=== PATIENT | female | born 1930 | race Caucasian/White ===

== ENCOUNTER 2018-05-15 03:12 | Inpatient (IN) | payer MEDICARE, BC ==
[~2018-05-15] VITALS: Ht 172.7 cm; Wt 79.9 kg
--- NOTE | 2018-05-15 05:20 | NUR ---
RN MS ADMISSION NOTES RECEIVED PATIENT DIRECT ADMIT FROM [facility]. DX. PANCREATITIS. PATIENT IS ALERT AND ORIENTED X1-2, CONFUSED. VERBALLY RESPONSIVE, ABLE TO MAKE NEEDS KNOWN. BREATHING EVEN AND UNLABORED. NO SOB NOTED. TOLERATING ROOM AIR. NO COMPLAINTS OF PAIN OR DISCOMFORT. NO FACIAL GRIMACING. IV ON LEFT HAND G#20 INTACT AND PATENT. SKIN DRY AND WARM TO TOUCH. AFEBRILE. SKIN ASSESSMENT RENDERED WITH PICTURES TAKEN AND PLACED IN CHART. PATIENT DID NOT HAVE BELONGINGS WITH HER WHEN ADMITTED. ORIENTED TO THE USE OF UNIT AMENITIES. SAFETY MEASURES IN PLACE. CALL LIGHT WITHIN REACH. WILL CONTINUE TO MONITOR.
[2018-05-15 05:30] VITALS: BP 165/64
[2018-05-15] MEDS ORDERED: HYDROCODONE/APAP 5/325MG 1 EACH TABLET PO PRN (06:00)
[2018-05-15] MEDS ORDERED: DEXTROSE 50%-WATER 50 ML DISP.SYRIN IV PRN (06:00)
[2018-05-15] MEDS ORDERED: Z GUARD REMEDY 2 OZ OINT TP PRN (06:00)
[2018-05-15] MEDS ORDERED: ACETAMINOPHEN 325 MG TABLET PO PRN (06:00)
[2018-05-15] MEDS ORDERED: ZOLPIDEM TARTRATE 5 MG TABLET PO PRN (06:00)
[2018-05-15] MEDS ORDERED: MAGNESIUM HYDROXIDE 30 ML UDC PO PRN (06:00)
[2018-05-15] MEDS ORDERED: MAG HYDROX/AL HYDROX/SIMETH 30 ML UDC PO PRN (06:00)
[2018-05-15] MEDS ORDERED: INSULIN REGULAR, HUMAN 100 UNIT/ML 3 ML VIAL SQ PRN (06:00)
[2018-05-15] MEDS ORDERED: ONDANSETRON HCL/PF 4 MG/2 ML VIAL IVP PRN (06:00)
[2018-05-15] MEDS: BLOOD SUGAR DIAGNOSTIC 1 EACH STRIP IN SCH ×4 (06:53→21:52)
--- NOTE | 2018-05-15 06:53 | NUR ---
RN MS NOTES BS 108 NO COVERAGE NEEDED
[2018-05-15] MEDS: IV D5 LR 1,000 ML IV PRN ×2 (06:57→18:50)
[2018-05-15 07:09] LABS: BASOPHILS # (AUTO) 0.1 /CMM (0.0-0.2); BASOPHILS % (AUTO) 1.2 % (0.0-2.0); EOSINOPHILS % (AUTO) 0.8 % (0.0-6.0); HEMATOCRIT 36 % (33-45); HEMOGLOBIN 12.2 g/dL (11.5-14.8); LYMPHOCYTES # (AUTO) 1.1 /CMM (0.8-4.8); MEAN CORPUSCULAR HGB CONC 34 g/dl (31.0-36.0); MEAN CORPUSCULAR VOLUME 88 fL (82-100); MONOCYTES # (AUTO) 0.6 /CMM (0.1-1.30); MONOCYTES % (AUTO) 8.6 % (2.0-12.0); NEUTROPHILS # (AUTO) 5.4 /CMM (1.8-8.9); NEUTROPHILS % (AUTO) 74.4 % (43.0-81.0); PLATELET COUNT (AUTO) 203 /CMM (150-450); RED BLOOD CELL COUNT(AUTO) 4.14 MIL/uL (4.0-5.2); WHITE BLOOD COUNT (AUTO) 7.3 K/uL (4.3-11.0)
--- NOTE | 2018-05-15 07:10 | NUR ---
MS/RN OPENING NOTE THE PATIENT ALERT AND ORIENTED X1 AND HEAD ON HEARING. DENIES PAIN. RESPIRATION REGULAR AND UNLABORED. PATIENT IS IN ROOM AIR AND DENIES SOB. THE PATIENT IN NO APPARENT DISTRESS. ABDOMEN SOFT AND NON-DISTENDED. LFA G 20 PATENT AND SALINE LOCKED. BED LOW AND LOCKED. SIDE RAILS UP X3. BED ALARM ON. CALL LIGHT WITHIN REACH. WILL CONTINUE TO MONITOR.
--- NOTE | 2018-05-15 07:20 | NUR ---
MS/RN NOTE LFA G 20 PATENT. TURNED ON D5 LR AT 125ML/HR AND IT STARTED TO INFUSE WITH NO S/S INFILTRATION. WILL CONTINUE TO MONITOR.
[2018-05-15 07:41] LABS: ALANINE AMINOTRANSFERASE 15 U/L (12-78); ALBUMIN 3.3 g/dL (3.4-5.0); ALKALINE PHOSPHATASE 49 U/L (46-116); ASPARTATE AMINOTRANSFERASE 14 U/L (15-37); BILIRUBIN,TOTAL 0.7 mg/dL (0.2-1.0); CALCIUM, SERUM 9.6 mg/dL (8.5-10.1); CARBON DIOXIDE 28 mmol/L (21-32); CHLORIDE 104 mmol/L (98-107); CHOLESTEROL 210 mg/dL (<200); CREATININE 1.9 mg/dL (0.6-1.3); GLUCOSE 115 mg/dL (74-106); HDL CHOLESTEROL 46 mg/dL (40-60); LDL 137 mg/dL (0-99); LIPASE 322 U/L (73-393); MAGNESIUM 1.9 mg/dL (1.8-2.4); PHOSPHORUS 2.8 mg/dL (2.5-4.9); SODIUM SERUM 139 mmol/L (136-145); THYROID STIMULATING HORMONE 0.978 uIU/mL (0.358-3.74); TOTAL PROTEIN, SERUM 6.4 g/dL (6.4-8.2); TRIGLYCERIDES 178 mg/dL (30-150); UREA NITROGEN, BLOOD 29 mg/dL (7-18)
[2018-05-15 08:00] VITALS: BP 153/68
[2018-05-15] MEDS: PANTOPRAZOLE 40 MG VIAL IV SCH (08:00)
[2018-05-15] MEDS ORDERED: LORA1TAB PO (09:36)
[2018-05-15] MEDS ORDERED: POLY30DR EACHEYE (09:36)
[2018-05-15] MEDS ORDERED: RANI300T4 PO (09:36)
[2018-05-15] MEDS ORDERED: FERR325T23 PO (09:36)
[2018-05-15] MEDS ORDERED: GABA-532 PO ×2 (09:36)
[2018-05-15] MEDS ORDERED: IPRA3AMP23 IH (09:36)
[2018-05-15] MEDS ORDERED: ACET325T53 PO (09:36)
[2018-05-15] MEDS ORDERED: LACT1CAP61 PO (09:36)
[2018-05-15] MEDS ORDERED: METO25TA6 PO (09:36)
[2018-05-15] MEDS ORDERED: ASCO500T9 PO (09:36)
[2018-05-15] MEDS ORDERED: BROM1.7D9 EACHEYE (09:36)
[2018-05-15] MEDS ORDERED: FLUO-120 PO (09:36)
[2018-05-15] MEDS ORDERED: MAGN400O6 PO (09:36)
[2018-05-15] MEDS ORDERED: PRED5DRO16 EACHEYE (09:36)
[2018-05-15] MEDS ORDERED: ERGO500040 PO (09:36)
[2018-05-15] MEDS ORDERED: CALC0.253 PO (09:36)
--- NOTE | 2018-05-15 12:13 | NUR ---
MS/RN NOTE RECEIVED NEW ORDER FROM DR RENEE Platt TO DISCONTINUE CLEAR LIQUID DIET AND START NEW DIET OF FULL LIQUID. THE ORDER IS READ BACK, VERIFIED. NOTED AND CARRIED OUT.
--- NOTE | 2018-05-15 12:21 | NUR ---
MS/RN NOTE BLOOD SUGAR IS 124. NO COVERAGE GIVEN.
--- NOTE | 2018-05-15 14:53 | NUR ---
WOUND CARE CONSULT: PT PRESENTS WITH RASH TO BREASTFOLD AND ABDOMINAL FOLDS, PRESENT ON ADMISSION. PT IS INCONTINENT. PT ABLE TO ASSIST WITH TURNING AND REPOSITIONING IN BED. ANXIOUS AT TIMES AND HARD OF HEARING. RECOMMENDATIONS MADE FOR SKIN CARE AND PROTECTION. DISCUSSED WITH NURSING STAFF. PT ON PETROLIA ISOFLEX LOW AIRLOSS BED. WILL SEE PRN. Addendum: 05/15/18 at 1455 by JEWEL NOONAN WNDNU Amended: Links added.
[2018-05-15 16:00] VITALS: BP 151/78
[2018-05-15] MEDS: CLOTRIMAZOLE 1% 15 GM TUBE TP SCH (18:40)
--- NOTE | 2018-05-15 18:43 | NUR ---
MS/RN NOTE THE PATIENT ALERT AND ORIENTED X1 AND HARD ON HEARING. REDIRECTION AND REORIENTATION IS PROVIDED. IN ROOM AIR AND SATURATION IS AT 97%. DENIES SOB. RESPIRATION REGULAR AND UNLABORED. DENIES PAIN. THE PATIENT IN NO APPARENT DISTRESS. LFA G 20 PATENT AND D5 LR INFUSING AT 125ML/HR AND NO S/S INFILTRATION NOTED. GOOD AND GENTLE SKIN CARE RENDERED. KEPT CLEAN AND COMFORTABLE. ALL NEEDS ATTENDED AND ANTICIPATED. BED LOW AND LOCKED. SIDE RAILS UP X3. BED ALARM ON. CALL LIGHT WITHIN REACH. WILL ENDORSE TO SEISMOGRAPH RECORDER.
--- NOTE | 2018-05-15 19:02 | NUR ---
MS/RN NOTE THE PATIENT TOLERATED FULL LIQUID DIET DINNER. ABDOMEN SOFT AND NON-DISTENDED. NORMAL BOWEL SOUNDS NOTED IN ALL FOUR QUADS OF ABDOMEN. NO NAUSEA AND NO VOMITING. DENIES PAIN. PER DR RENEE Platt ORDER DIET IS UNGRADED TO SOFT. THE ORDER READ BACK, VERIFIED. NOTED AND CARRIED OUT.
--- NOTE | 2018-05-15 19:30 | NUR ---
MS RN INITIAL NOTES Patient in bed, A/O x1 to self. Appears irritable, stable oxygen saturation on RA, denies pain. Maintained safety, bed alarm on and audible. Will cont to monitor.
[2018-05-15 20:00] VITALS: BP 155/88
[2018-05-15 22:12] VITALS: BP 155/88
[2018-05-16 03:47] LABS: OCCULT BLOOD STOOL NEGATIVE (NEGATIVE)
[2018-05-16] MEDS ORDERED: IPRATROPIUM NEB FS 0.5 MG/2.5 ML AMPUL.NEB IH PRN (04:00)
[2018-05-16] MEDS: BLOOD SUGAR DIAGNOSTIC 1 EACH STRIP IN SCH ×2 (06:07→11:10)
[2018-05-16] MEDS: PANTOPRAZOLE 40 MG VIAL IV SCH (06:08)
[2018-05-16] MEDS ORDERED: LORAZEPAM INJ 2 MG/ML VIAL IV ONE (06:30)
--- NOTE | 2018-05-16 06:36 | NUR ---
MS RN CLOSING NOTES Patient is awake, sitting up in chair. A/O x1 to self only, with confusion. Episode of agitation during care, trying to get up from bed unassisted. Notified FURNITURE SERVICER [place], order was place. 1:1 sitter. Ativan 1mg IVP x1 given at 0635. Maintained safety. Patient refusing IVF infusion, right hand IVC in place. Bowel movement this shift, soft black and large amount, send to lab for stool OB, result pending. Will endorse to oncoming RN. Patient refused am lab, will follow up in am to re try.
--- NOTE | 2018-05-16 07:27 | NUR ---
MS RN OPENING NOTES RECEIVED PATIENT IN STABLE CONDITION. IN NO APPARENT DISTRESS. BEDSIDE RAILS ARE UPX2. BED IS LOCKED AND LOWERED. CALL LIGHT IS WITHIN REACH. IV LINE IS INTACT AND PATENT. WILL CONTINUE TO MONITOR PATIENT.
[2018-05-16 08:00] VITALS: BP 153/94
[2018-05-16 09:00] VITALS: BP 153/94
[2018-05-16] MEDS ORDERED: FLUOXETINE HCL 20 MG CAPSULE PO SCH (09:00)
[2018-05-16] MEDS ORDERED: Medication Not On Formulary EA (Bromfenac Sodium 1 DROP) EACHEYE SCH (09:00)
[2018-05-16] MEDS: LORAZEPAM 1 MG TABLET PO SCH ×2 (09:00→12:35)
[2018-05-16] MEDS ORDERED: FERROUS SULFATE (325 MG) 325 MG/TAB TABLET PO SCH (09:00)
[2018-05-16] MEDS ORDERED: MAGNESIUM HYDROXIDE 30 ML UDC PO SCH (09:00)
[2018-05-16] MEDS ORDERED: METOPROLOL TARTRATE 25 MG TABLET PO SCH (09:00)
[2018-05-16] MEDS ORDERED: GABAPENTIN 100 MG CAPSULE PO SCH ×2 (09:00→22:00)
[2018-05-16] MEDS ORDERED: CALCITRIOL 0.25 MCG CAPSULE PO SCH (09:00)
[2018-05-16] MEDS ORDERED: ASCORBIC ACID 500 MG TABLET PO SCH (09:00)
[2018-05-16] MEDS ORDERED: POLYVINYL ALCOHOL/POVIDONE 0.4 ML DROPERETTE EACHEYE SCH (09:00)
[2018-05-16] MEDS ORDERED: prednisoLONE ACET 1% OPHT DROP 5 ML BOTTLE EACHEYE SCH (09:00)
[2018-05-16] MEDS ORDERED: LACTOBACILLUS RHAMNOSUS GG 1 EACH CAP.SPRINK PO SCH (09:00)
[2018-05-16] MEDS: CLOTRIMAZOLE 1% 15 GM TUBE TP SCH (09:10)
--- NOTE | 2018-05-16 09:51 | NUR ---
PATIENT REFUSED ALL MORNING MEDICATIONS. INFORMED DR. RENEE THOMPSON. NO NEW ORDERS AT THIS TIME. PATIENT IS AWAITING PSYCHIATRIC CONSULT FROM DR. MANNING.
[2018-05-16 11:04] LABS: BASOPHILS % (AUTO) 0.7 % (0.0-2.0); EOSINOPHILS % (AUTO) 0.6 % (0.0-6.0); HEMATOCRIT 38 % (33-45); HEMOGLOBIN 12.6 g/dL (11.5-14.8); LYMPHOCYTES # (AUTO) 1.1 /CMM (0.8-4.8); LYMPHOCYTES % (AUTO) 17.7 % (20.0-44.0); MEAN CORPUSCULAR HGB CONC 33 g/dl (31.0-36.0); MEAN CORPUSCULAR VOLUME 88 fL (82-100); MONOCYTES # (AUTO) 0.5 /CMM (0.1-1.30); MONOCYTES % (AUTO) 7.1 % (2.0-12.0); NEUTROPHILS # (AUTO) 4.8 /CMM (1.8-8.9); NEUTROPHILS % (AUTO) 73.9 % (43.0-81.0); PLATELET COUNT (AUTO) 216 /CMM (150-450); RED BLOOD CELL COUNT(AUTO) 4.32 MIL/uL (4.0-5.2); WHITE BLOOD COUNT (AUTO) 6.5 K/uL (4.3-11.0)
[2018-05-16 11:08] LABS: CALCIUM, SERUM 9.9 mg/dL (8.5-10.1); CARBON DIOXIDE 24 mmol/L (21-32); CHLORIDE 106 mmol/L (98-107); CREATININE 1.9 mg/dL (0.6-1.3); GLUCOSE 126 mg/dL (74-106); LIPASE 305 U/L (73-393); POTASSIUM 3.9 mmol/L (3.5-5.1); SODIUM SERUM 141 mmol/L (136-145); UREA NITROGEN, BLOOD 23 mg/dL (7-18)
[2018-05-16] MEDS ORDERED: QUETIAPINE FUMARATE 25 MG TABLET PO PRN (11:30)
[2018-05-16] MEDS ORDERED: KETOROLAC EYE 0.5% 3 ML BOTTLE EACHEYE SCH (12:00)
--- NOTE | 2018-05-16 16:34 | NUR ---
PATIENT REFUSED DISCHARGE PICTURES. PATIENT IS COMBATIVE.
--- NOTE | 2018-05-16 17:25 | NUR ---
MS SHAKER WASHER NOTES PATIENT DISCHARGED IN STABLE CONDITION. IN NO APPARENT DISTRESS. IV LINE AND ID BAND WAS REMOVED. ALL NEEDS WERE MET. REPORT WAS GIVEN TO GPS. PATIENT ESCORTED TO GPS BY ANDREY PRECIADO.
== END 2018-05-16 17:09 | DRG 440 ==
LOC: MED 05:13
DX: K85.90 Acute pancreatitis without necrosis or infection, unspecified (principal); F03.90 Unspecified dementia, unspecified severity, without behavioral disturbance, psychotic disturbance, mood disturbance, and anxiety; E55.9 Vitamin D deficiency, unspecified; H40.9 Unspecified glaucoma; H91.90 Unspecified hearing loss, unspecified ear; J44.9 Chronic obstructive pulmonary disease, unspecified; K21.9 Gastro-esophageal reflux disease without esophagitis; I12.9 Hypertensive chronic kidney disease with stage 1 through stage 4 chronic kidney disease, or unspecified chronic kidney disease; F32.9 Major depressive disorder, single episode, unspecified; L30.4 Erythema intertrigo; L98.8 Other specified disorders of the skin and subcutaneous tissue; S01.80XA Unspecified open wound of other part of head, initial encounter; X58.XXXA Exposure to other specified factors, initial encounter; Y93.9 Activity, unspecified; Y92.009 Unspecified place in unspecified non-institutional (private) residence as the place of occurrence of the external cause; N18.3 Chronic kidney disease, stage 3 (moderate); E11.22 Type 2 diabetes mellitus with diabetic chronic kidney disease
CPT/HCPCS: 36415; 80048-TC; 80053-TC; 80061-TC; 82272-TC; 82962-TC; 83690-TC; 83735-TC; 84100-TC; 84443-TC; 85025-TC; 87081-TC; C9113; G0378; J1815; J2060; J3490

== ENCOUNTER 2018-05-16 18:41 | Inpatient (IN) | payer MEDICARE, BC ==
[~2018-05-16] VITALS: Ht 167.6 cm; Wt 74.8 kg
[~2018-05-16 18:41] MED LIST: ACET325T53 PO; ASCO500T9 PO; BROM1.7D9 EACHEYE; CALC0.253 PO; ERGO500040 PO; FERR325T23 PO; FLUO-120 PO; GABA-532 PO; IPRA3AMP23 IH; LACT1CAP61 PO; LORA1TAB PO; MAGN400O6 PO; METO25TA6 PO; POLY30DR EACHEYE; PRED5DRO16 EACHEYE; RANI300T4 PO
[2018-05-16 18:49] VITALS: BP 162/95
[2018-05-16] MEDS ORDERED: MAG HYDROX/AL HYDROX/SIMETH 30 ML UDC PO PRN (19:00)
[2018-05-16] MEDS ORDERED: MAGNESIUM HYDROXIDE 30 ML UDC PO PRN (19:00)
--- NOTE | 2018-05-16 19:08 | NUR ---
PT. ARRIVED IN THE UNIT VIA A WHEELCHAIR FROM MED- SURG. V/S TAKEN AND CONTRABAND TAKEN. DR. MANNING MADE AWARE OF THE ADMISSION AND GAVE ORDERS. WILL ENDORSE TO THE INCOMING SHIFT FOR THE COMPLETION OF THE ADMISSION.
[2018-05-16] MEDS ORDERED: TEMAZEPAM 7.5 MG CAPSULE PO PRN (19:30)
[2018-05-16 20:00] VITALS: BP 152/78
--- NOTE | 2018-05-16 21:48 | NUR ---
BP 158/78, HR 115. EXPLAINED THAT MEDICATIONS NEED TO START. PATIENT STATED," YOU ARE TRYING TO KILL ME, YOU KNOW WHAT TO DO. NO , I AM NOT TAKING ANY MEDICINE. PATIENT STARTED YELLING AND SCREAMING, UNCONTROLLABLY, LOUD AND AGITATED. DAUGHTER STEPHANIE CALLED, SHE SAID THAT HER MOTHER IS REALLY BEHAVING THAT WAY.
[2018-05-16] MEDS: GABAPENTIN 100 MG CAPSULE PO SCH (21:53)
[2018-05-16] MEDS ORDERED: IPRATROPIUM NEB FS 0.5 MG/2.5 ML AMPUL.NEB NEB PRN (22:00)
[2018-05-16] MEDS ORDERED: ALBUTEROL FS 2.5 MG/3 ML VIAL.NEB NEB PRN (22:00)
--- NOTE | 2018-05-17 03:44 | NUR ---
PATIENT ADMITTED 05/16/2018 AT AROUND 1845 ON 5150 HOLD FOR GD. RECEIVED PATIENT AT THE DINING AREA SITTING ON THE GHISLAINE-CHAIR. UPON FACE TO FACE, PATIENT WAS PARANOID,, DELUSIONAL, CONFUSED, YELLING AT STAFF, AND BERATING HER . DURING ASSESSMENT, PATIENT IS CALM, ALERT, CONFUSED, VERY UNCOOPERATIVE. UNABLE TO OBTAIN PERTINENT INFORMATIONS DUE TO HER CONFUSION. PATIENT STARTED TO YELL, SCREAM WHEN ASKED ROUTINE QUESTIONS. PATIENT CONFUSED, PARANOID, AGITATED, LOUD,ANXIOUS. SHOWS NO S/S OF ANY PAIN, NO APPARENT DISTRESS NOTED, ROOM AIR SATURATION 97%, BELONGINGS WERE INVENTORIED AND CHECKED FOR CONTRABAND. SKIN ASSESSMENT DONE, NOTED REDNESS RASHES ON BOTH BREAST, GROIN, LEFT HIP. DISCOLORATION ON BOTH ARMS AND LEGS, WOUND CONSULT ORDERED. MED RECON DONE BY GURINDER MIXON, NOTIFIED ABOUT THE ADMISSION. DAUGHTER STEPHANIE CALLED THE UNIT, AWARE OF HER MOTHER'S ADMISSION. PATIENT IS C/O OF PAIN ON HER LEFT KNEE, 3/10 ON PAIN SCALE. PLACED PATIENT IN BED, PHOTOS DONE. REQUIRES MODERATE ASSISTANCE WITH ADL'S. PATIENT REFUSED TO TAKE ANY MEDICATIONS, STATED, " I KNOW YOU ARE TRYING TO KILL ME, YOU KNOW HOW TO DO IT, NO, I AM NOT TAKING ANY MEDICINE." BED LOCKED AND PLACED ON LOWEST POSITION FOR SAFETY. WILL CONTINUE TO MONITOR Q 15 MINS. TO MAINTAIN SAFETY.
[2018-05-17] MEDS: GABAPENTIN 100 MG CAPSULE PO SCH ×3 (05:00→22:00)
--- NOTE | 2018-05-17 06:17 | NUR ---
REFUSED MRSA SCREEN.
[2018-05-17 08:00] VITALS: BP 161/97
[2018-05-17] MEDS: KETOROLAC EYE 0.5% 3 ML BOTTLE EACHEYE SCH ×4 (09:00→21:00)
[2018-05-17] MEDS: MAGNESIUM HYDROXIDE 30 ML UDC PO SCH (09:00)
[2018-05-17] MEDS: METOPROLOL TARTRATE 25 MG TABLET PO SCH ×2 (09:00→17:00)
[2018-05-17] MEDS: prednisoLONE ACET 1% OPHT DROP 5 ML BOTTLE EACHEYE SCH ×2 (09:00→17:00)
[2018-05-17] MEDS: LACTOBACILLUS RHAMNOSUS GG 1 EACH CAP.SPRINK PO SCH (09:00)
[2018-05-17] MEDS: POLYVINYL ALCOHOL 15 ML BOTTLE EACHEYE SCH (09:00)
[2018-05-17] MEDS: FAMOTIDINE (20 MG) 20 MG TABLET PO SCH (09:00)
[2018-05-17] MEDS: CALCITRIOL 0.25 MCG CAPSULE PO SCH (09:00)
[2018-05-17] MEDS: FERROUS SULFATE (325 MG) 325 MG/TAB TABLET PO SCH (09:00)
[2018-05-17] MEDS: ASCORBIC ACID 500 MG TABLET PO SCH (09:00)
[2018-05-17] MEDS: DIVALPROEX SODIUM 125 MG CAP.SPRINK PO SCH ×2 (10:00→17:00)
[2018-05-17] MEDS: QUETIAPINE FUMARATE 25 MG TABLET PO SCH ×2 (10:00→17:00)
[2018-05-17] MEDS: FLUOXETINE HCL 20 MG CAPSULE PO SCH (10:00)
--- NOTE | 2018-05-17 11:32 | NUR ---
SW spoke with pts daughter Theodora [phone] for collateral information and discharge planning.
--- NOTE | 2018-05-17 11:57 | NUR ---
INITIAL DISCHARGE PLAN: Patients daughter Theodora [phone] wishes for pt to return to [facility] at [address] [address] . SYLVIA contacted MALCOLM Gardner at [facility] and left a voicemail requesting confirmation for readmission. SYLVIA will help form a safe and proper discharge in collaboration with daughter, facility, and MD.
--- NOTE | 2018-05-17 13:10 | NUR ---
SW received a voicemail from Kendra, nurse in charge at [address], [place] [address] stating pt is able to return to the facility when stable for discharge.
--- NOTE | 2018-05-17 13:33 | NUR ---
GPS/RN PT REFUSED ALL MEDS. TRIED ON MULTIPLE OCCASIONS FROM AM. PT'S DAUGHTER AT BEDSIDE TRIED TO CONVINCE PT TO TAKE MEDS WELL. USED ALL MEANS TO COMMUNICATE INCLUDING HEARING AIDS AND WRITING(PT IS HARD OF HEARING) TO NO AVAIL. WILL TRY TO MEDICATE FOR 1700
[2018-05-17 15:06] LABS: ALANINE AMINOTRANSFERASE 16 U/L (12-78); ALBUMIN 3.4 g/dL (3.4-5.0); ALKALINE PHOSPHATASE 47 U/L (46-116); ASPARTATE AMINOTRANSFERASE 18 U/L (15-37); BILIRUBIN,TOTAL 1.1 mg/dL (0.2-1.0); CALCIUM, SERUM 9.7 mg/dL (8.5-10.1); CARBON DIOXIDE 24 mmol/L (21-32); CHLORIDE 107 mmol/L (98-107); CREATININE 1.8 mg/dL (0.6-1.3); GLUCOSE 122 mg/dL (74-106); POTASSIUM 3.9 mmol/L (3.5-5.1); SODIUM SERUM 142 mmol/L (136-145); TOTAL PROTEIN, SERUM 6.5 g/dL (6.4-8.2); UREA NITROGEN, BLOOD 27 mg/dL (7-18)
[2018-05-17 15:09] LABS: CHOLESTEROL 224 mg/dL (<200); HDL CHOLESTEROL 54 mg/dL (40-60); LDL 147 mg/dL (0-99); TRIGLYCERIDES 123 mg/dL (30-150)
[2018-05-17 16:00] VITALS: BP 142/76
[2018-05-17 20:00] VITALS: BP 151/80
[2018-05-18] MEDS: ACETAMINOPHEN 325 MG TABLET PO PRN (02:38)
[2018-05-18 08:00] VITALS: BP 160/93
[2018-05-18] MEDS: MAGNESIUM HYDROXIDE 30 ML UDC PO SCH (09:00)
[2018-05-18] MEDS: ASCORBIC ACID 500 MG TABLET PO SCH (09:00)
[2018-05-18] MEDS: LACTOBACILLUS RHAMNOSUS GG 1 EACH CAP.SPRINK PO SCH (09:00)
[2018-05-18] MEDS: KETOROLAC EYE 0.5% 3 ML BOTTLE EACHEYE SCH ×4 (09:00→21:08)
[2018-05-18] MEDS: CALCITRIOL 0.25 MCG CAPSULE PO SCH (09:00)
[2018-05-18] MEDS: FERROUS SULFATE (325 MG) 325 MG/TAB TABLET PO SCH (09:00)
[2018-05-18] MEDS: GABAPENTIN 100 MG CAPSULE PO SCH ×2 (09:00→22:15)
[2018-05-18] MEDS: FAMOTIDINE (20 MG) 20 MG TABLET PO SCH (09:00)
[2018-05-18] MEDS: FLUOXETINE HCL 20 MG CAPSULE PO SCH (09:00)
[2018-05-18] MEDS: POLYVINYL ALCOHOL 15 ML BOTTLE EACHEYE SCH (09:00)
[2018-05-18] MEDS: prednisoLONE ACET 1% OPHT DROP 5 ML BOTTLE EACHEYE SCH ×2 (09:00→17:00)
[2018-05-18] MEDS: QUETIAPINE FUMARATE 25 MG TABLET PO SCH ×2 (11:09→17:00)
[2018-05-18] MEDS: DIVALPROEX SODIUM 125 MG CAP.SPRINK PO SCH ×2 (11:10→17:00)
--- NOTE | 2018-05-18 11:10 | NUR ---
GPS/RN PT TOOK SOME OF AM MEDS. DR MARTINEZ MADE AWARE OF PT'S NOT COMPLIANCE.
[2018-05-18] MEDS: METOPROLOL TARTRATE 25 MG TABLET PO SCH ×2 (11:20→17:00)
[2018-05-18 16:00] VITALS: BP 154/79
[2018-05-18] MEDS: ENSURE ENLIVE CHOC 237 ML CAN PO SCH (17:00)
[2018-05-18] MEDS: NYSTATIN TOP POWDER 15 GM BOTTLE TP SCH (18:38)
[2018-05-18 20:00] VITALS: BP 151/62
[2018-05-19 08:00] VITALS: BP 155/98
[2018-05-19] MEDS: ENSURE ENLIVE CHOC 237 ML CAN PO SCH ×2 (08:00→17:34)
[2018-05-19] MEDS: prednisoLONE ACET 1% OPHT DROP 5 ML BOTTLE EACHEYE SCH ×3 (08:13→17:31)
[2018-05-19] MEDS: POLYVINYL ALCOHOL 15 ML BOTTLE EACHEYE SCH ×2 (08:13→12:07)
[2018-05-19] MEDS: KETOROLAC EYE 0.5% 3 ML BOTTLE EACHEYE SCH ×4 (08:13→21:20)
[2018-05-19] MEDS: FERROUS SULFATE (325 MG) 325 MG/TAB TABLET PO SCH (09:00)
[2018-05-19] MEDS: FAMOTIDINE (20 MG) 20 MG TABLET PO SCH (09:00)
[2018-05-19] MEDS: MAGNESIUM HYDROXIDE 30 ML UDC PO SCH (09:00)
[2018-05-19] MEDS: CALCITRIOL 0.25 MCG CAPSULE PO SCH (09:00)
[2018-05-19] MEDS: ASCORBIC ACID 500 MG TABLET PO SCH (09:00)
[2018-05-19] MEDS: LACTOBACILLUS RHAMNOSUS GG 1 EACH CAP.SPRINK PO SCH (09:00)
[2018-05-19] MEDS: GABAPENTIN 100 MG CAPSULE PO SCH ×2 (09:00→21:48)
[2018-05-19] MEDS: DIVALPROEX SODIUM 125 MG CAP.SPRINK PO SCH ×2 (11:49→17:50)
[2018-05-19] MEDS: METOPROLOL TARTRATE 25 MG TABLET PO SCH ×2 (11:50→17:50)
[2018-05-19] MEDS: QUETIAPINE FUMARATE 25 MG TABLET PO SCH ×2 (11:50→17:50)
[2018-05-19] MEDS: FLUOXETINE HCL 20 MG CAPSULE PO SCH (11:50)
[2018-05-19] MEDS: NYSTATIN TOP POWDER 15 GM BOTTLE TP SCH ×2 (12:04→17:30)
--- NOTE | 2018-05-19 12:10 | NUR ---
GPS/RN PT AGREED TO TAKE SOME OF AM MEDS AND EYE DROPS.
[2018-05-19 16:00] VITALS: BP 129/67
--- NOTE | 2018-05-19 19:30 | NUR ---
GPS RN NOTE, RECEIVED PATIENT AWAKE AND IN BED NO S/S OR COMPLAINTS OF PAIN AT THIS TIME. PATIENT IS DISPLAYING NO S/S OF APPARENT DISTRESS AT THIS TIME. PATIENT BREATHING IS UNLABORED WITH EQUAL RISE AND FALL OF THE CHEST. PATIENT IS ALERT AND ORIENTED X 1-2 ON ROOM AIR WITH A SPO2 0F 95%. PATIENT IS MED SELECTIVE, DISORGANIZED, DELUSIONAL, COOPERATIVE, CONFUSED AT TIME, AND NEEDS REORIENTATION. PATIENT DENIES SUICIDE AND HOMICIDAL IDEATIONS AT THIS TIME. PATIENT ASSISTED WITH TURNING AND REPOSITIONING Q2HR AND PRN FOR COMFORT AND CIRCULATION. PATIENT HAS NO NEEDS AT THIS TIME. PATIENT EDUCATED ON THE USE OF THE CALL ROSS. PATIENT BED SIDE RAILS ARE UP X 2 FOR SAFETY, BED IS LOCKED AND LOW. WILL CONTINUE TO MONITOR AND MAINTAIN SAFETY Q15 MIN WITH THE HELP OF STAFF.
[2018-05-19 20:00] VITALS: BP 105/62
--- NOTE | 2018-05-19 20:03 | NUR ---
GPS RN NOTE, PATIENT REFUSED TO HAVE A SKIN EXAM AND PICTURES TAKEN TODAY. OFFERED TO TAKE PICTURES THREE TIMES AND STILL PATIENT REFUSED STATING, " I DON'T WANT PICTURES TAKEN OF MY BODY, JUST LEAVE IN THE HANDS OF GOD ". EDUCATE THIS PATIENT ON HOSPITAL POLICY OF TAKING PICTURES AND DOING A SKIN EXAM. WILL CONTINUE TO MONITOR THIS PATIENT.
[2018-05-19] MEDS: ACETAMINOPHEN 325 MG TABLET PO PRN (21:48)
--- NOTE | 2018-05-19 21:48 | NUR ---
GPS RN NOTE, PATIENT HAS A COMPLAINT OF A HEADACHE AT 3 OUT 10 ON THE PAIN SCALE AND IS REQUESTING TYLENOL AT THIS TIME. PATIENT VITAL SIGNS ARE STABLE. GAVE TYLENOL 650MG PO Q6HR PRN ORDERED. WILL REASSESS PAIN AND I WILL CONTINUE TO MONITOR THIS PATIENT.
[2018-05-20 08:10] VITALS: BP 116/71
--- NOTE | 2018-05-20 09:20 | NUR ---
SYLVIA contacted [facility] [address] [place] [address] and spoke with Mignon at the javascript front end developer and informed her pt is discharging tomorrow. Mignon stated she would inform MALCOLM Khanna who was currently in a meeting.
--- NOTE | 2018-05-20 09:29 | NUR ---
SYLVIA spoke with pts daughter Theodora [phone] and informed her that per psychiatrist if pt is med compliant with all medications today pt will be discharging tomorrow 05/21/18. SYLVIA informed her that she would contact her tomorrow after she has met with psychiatrist to confirm discharge. Daughter agreed.
[2018-05-20] MEDS: GABAPENTIN 100 MG CAPSULE PO SCH ×2 (09:35→21:31)
[2018-05-20] MEDS: FERROUS SULFATE (325 MG) 325 MG/TAB TABLET PO SCH (09:35)
[2018-05-20] MEDS: FAMOTIDINE (20 MG) 20 MG TABLET PO SCH (09:35)
[2018-05-20] MEDS: METOPROLOL TARTRATE 25 MG TABLET PO SCH ×2 (09:35→17:14)
[2018-05-20] MEDS: CALCITRIOL 0.25 MCG CAPSULE PO SCH (09:36)
[2018-05-20] MEDS: ENSURE ENLIVE CHOC 237 ML CAN PO SCH ×2 (09:36→17:21)
[2018-05-20] MEDS: FLUOXETINE HCL 20 MG CAPSULE PO SCH (09:36)
[2018-05-20] MEDS: ASCORBIC ACID 500 MG TABLET PO SCH (09:36)
[2018-05-20] MEDS: LACTOBACILLUS RHAMNOSUS GG 1 EACH CAP.SPRINK PO SCH (09:36)
[2018-05-20] MEDS: DIVALPROEX SODIUM 125 MG CAP.SPRINK PO SCH ×2 (09:36→17:16)
[2018-05-20] MEDS: NYSTATIN TOP POWDER 15 GM BOTTLE TP SCH ×2 (09:38→17:21)
[2018-05-20] MEDS: QUETIAPINE FUMARATE 25 MG TABLET PO SCH ×2 (09:38→17:15)
[2018-05-20] MEDS: prednisoLONE ACET 1% OPHT DROP 5 ML BOTTLE EACHEYE SCH ×2 (09:39→17:20)
[2018-05-20] MEDS: KETOROLAC EYE 0.5% 3 ML BOTTLE EACHEYE SCH ×4 (09:39→21:30)
[2018-05-20] MEDS: POLYVINYL ALCOHOL 15 ML BOTTLE EACHEYE SCH (09:39)
[2018-05-20] MEDS: MAGNESIUM HYDROXIDE 30 ML UDC PO SCH (09:40)
[2018-05-20 16:00] VITALS: BP 147/57
[2018-05-20 20:00] VITALS: BP 123/64
[2018-05-20] MEDS: clonazePAM 0.5 MG TABLET PO PRN (21:35)
[2018-05-21 08:00] VITALS: BP 143/64
[2018-05-21] MEDS: ENSURE ENLIVE CHOC 237 ML CAN PO SCH ×2 (08:56→17:39)
[2018-05-21] MEDS: NYSTATIN TOP POWDER 15 GM BOTTLE TP SCH ×2 (09:10→17:38)
[2018-05-21] MEDS: KETOROLAC EYE 0.5% 3 ML BOTTLE EACHEYE SCH ×4 (09:10→22:15)
[2018-05-21] MEDS: prednisoLONE ACET 1% OPHT DROP 5 ML BOTTLE EACHEYE SCH ×2 (09:10→17:38)
[2018-05-21] MEDS: FAMOTIDINE (20 MG) 20 MG TABLET PO SCH (09:11)
[2018-05-21] MEDS: GABAPENTIN 100 MG CAPSULE PO SCH ×2 (09:11→22:00)
[2018-05-21] MEDS: ASCORBIC ACID 500 MG TABLET PO SCH (09:11)
[2018-05-21] MEDS: LACTOBACILLUS RHAMNOSUS GG 1 EACH CAP.SPRINK PO SCH (09:11)
[2018-05-21] MEDS: MAGNESIUM HYDROXIDE 30 ML UDC PO SCH (09:11)
[2018-05-21] MEDS: QUETIAPINE FUMARATE 25 MG TABLET PO SCH ×2 (09:11→17:38)
[2018-05-21] MEDS: FLUOXETINE HCL 20 MG CAPSULE PO SCH (09:11)
[2018-05-21] MEDS: FERROUS SULFATE (325 MG) 325 MG/TAB TABLET PO SCH (09:11)
[2018-05-21] MEDS: CALCITRIOL 0.25 MCG CAPSULE PO SCH (09:12)
[2018-05-21] MEDS: METOPROLOL TARTRATE 25 MG TABLET PO SCH ×2 (09:12→17:39)
[2018-05-21] MEDS: DIVALPROEX SODIUM 125 MG CAP.SPRINK PO SCH ×2 (09:12→17:38)
[2018-05-21] MEDS: POLYVINYL ALCOHOL 15 ML BOTTLE EACHEYE SCH (09:16)
--- NOTE | 2018-05-21 10:07 | NUR ---
SYLVIA spoke with pts daughter Theodora [phone] and informed her that per psychiatrist pt is stable for discharge. SYLVIA also informed her that she received physicians report and is waiting for hospitalist to sign and SYLVIA will fax to [facility] unit. SYLVIA informed daughter that Psychiatrist has ordered discharge for tomorrow 05/22/18. Daughter will contact facility and ensure there is a bed available for pt.
[2018-05-21 10:21] LABS: BASOPHILS # (AUTO) 0.1 /CMM (0.0-0.2); BASOPHILS % (AUTO) 0.6 % (0.0-2.0); EOSINOPHILS % (AUTO) 2.4 % (0.0-6.0); HEMATOCRIT 41 % (33-45); HEMOGLOBIN 13.4 g/dL (11.5-14.8); LYMPHOCYTES # (AUTO) 1.8 /CMM (0.8-4.8); LYMPHOCYTES % (AUTO) 21.4 % (20.0-44.0); MEAN CORPUSCULAR HGB CONC 33 g/dl (31.0-36.0); MEAN CORPUSCULAR VOLUME 89 fL (82-100); MONOCYTES # (AUTO) 0.7 /CMM (0.1-1.30); MONOCYTES % (AUTO) 8.6 % (2.0-12.0); NEUTROPHILS # (AUTO) 5.7 /CMM (1.8-8.9); PLATELET COUNT (AUTO) 221 /CMM (150-450); RED BLOOD CELL COUNT(AUTO) 4.54 MIL/uL (4.0-5.2); WHITE BLOOD COUNT (AUTO) 8.6 K/uL (4.3-11.0)
[2018-05-21 10:31] LABS: ALANINE AMINOTRANSFERASE 13 U/L (12-78); ALBUMIN 3.1 g/dL (3.4-5.0); ALKALINE PHOSPHATASE 49 U/L (46-116); ASPARTATE AMINOTRANSFERASE 12 U/L (15-37); BILIRUBIN,TOTAL 0.6 mg/dL (0.2-1.0); CALCIUM, SERUM 9.9 mg/dL (8.5-10.1); CARBON DIOXIDE 27 mmol/L (21-32); CHLORIDE 106 mmol/L (98-107); CREATININE 2.1 mg/dL (0.6-1.3); GLUCOSE 99 mg/dL (74-106); PHOSPHORUS 3.4 mg/dL (2.5-4.9); SODIUM SERUM 143 mmol/L (136-145); TOTAL PROTEIN, SERUM 6.1 g/dL (6.4-8.2); UREA NITROGEN, BLOOD 52 mg/dL (7-18)
--- NOTE | 2018-05-21 11:35 | NUR ---
SYLVIA received a phone call from Yesenia, billing and insurance coordinator at [facility] [address], [place] [address] stating pt has been accepted to their Memory Care Unit and wont have a room available until 05/23/18. SYLVIA stated that she would inform psychiatrist and will fax Physicians Report as soon as its completed.
--- NOTE | 2018-05-21 14:45 | NUR ---
NURSING NOTE: BUN 53, CREATININE 2.1, DR. PICKARD HAS BEEN NOTIFIED. PUSH PO FLUIDS PER MD KENNEDY AND CONTINUE TO MONITOR.
[2018-05-21 15:58] VITALS: BP 122/53
[2018-05-21] MEDS: ACETAMINOPHEN 325 MG TABLET PO PRN (17:55)
--- NOTE | 2018-05-21 18:00 | NUR ---
NURSING NOTE: PT C/O PAIN ALL OVER BODY FROM ARTHRITIS, ADMINISTERED TYLENOL 650MG PO PER MD ORDER. WILL CONTINUE TO MONITOR.
[2018-05-22 08:00] VITALS: BP 140/61
[2018-05-22 08:03] LABS: BASOPHILS # (AUTO) 0.1 /CMM (0.0-0.2); BASOPHILS % (AUTO) 0.7 % (0.0-2.0); EOSINOPHILS % (AUTO) 2.5 % (0.0-6.0); HEMATOCRIT 40 % (33-45); HEMOGLOBIN 13.2 g/dL (11.5-14.8); LYMPHOCYTES # (AUTO) 1.7 /CMM (0.8-4.8); LYMPHOCYTES % (AUTO) 20.8 % (20.0-44.0); MEAN CORPUSCULAR HGB CONC 33 g/dl (31.0-36.0); MEAN CORPUSCULAR VOLUME 89 fL (82-100); MONOCYTES # (AUTO) 0.8 /CMM (0.1-1.30); MONOCYTES % (AUTO) 9.8 % (2.0-12.0); NEUTROPHILS # (AUTO) 5.5 /CMM (1.8-8.9); NEUTROPHILS % (AUTO) 66.2 % (43.0-81.0); PLATELET COUNT (AUTO) 208 /CMM (150-450); RED BLOOD CELL COUNT(AUTO) 4.45 MIL/uL (4.0-5.2); WHITE BLOOD COUNT (AUTO) 8.3 K/uL (4.3-11.0)
[2018-05-22 08:19] LABS: APPEARANCE,URINE CLEAR (CLEAR); BILIRUBIN,URINE NEGATIVE (NEGATIVE); BLOOD, URINE TRACE-INTA Ery/uL (NEGATIVE); COLOR,URINE YELLOW (YELLOW); KETONES,URINE NEGATIVE (NEGATIVE); LEUKOCYTE ESTERASE ,URINE 1+ (NEGATIVE); NITRITE, URINE NEGATIVE (NEGATIVE); PH,URINE 5.5 (5.0-8.0); PROTEIN,URINE NEGATIVE (NEGATIVE); UGLUCOSE NEGATIVE (NEGATIVE); UROBILINOGEN,URINE 0.2 EU/dL (0.2)
[2018-05-22 08:20] LABS: CALCIUM, SERUM 9.8 mg/dL (8.5-10.1); CARBON DIOXIDE 29 mmol/L (21-32); CHLORIDE 108 mmol/L (98-107); CREATININE 2.1 mg/dL (0.6-1.3); GLUCOSE 92 mg/dL (74-106); POTASSIUM 4.4 mmol/L (3.5-5.1); SODIUM SERUM 146 mmol/L (136-145); UREA NITROGEN, BLOOD 57 mg/dL (7-18)
[2018-05-22 08:40] LABS: BACTERIA,URINE Moderate /HPF (None Seen); SQUAMOUS EPITHELIAL CELL,UR Few /HPF (None Seen)
[2018-05-22] MEDS: MAGNESIUM HYDROXIDE 30 ML UDC PO SCH (08:52)
[2018-05-22] MEDS: ENSURE ENLIVE CHOC 237 ML CAN PO SCH ×2 (08:52→17:02)
[2018-05-22] MEDS: LACTOBACILLUS RHAMNOSUS GG 1 EACH CAP.SPRINK PO SCH (08:53)
[2018-05-22] MEDS: QUETIAPINE FUMARATE 25 MG TABLET PO SCH ×2 (08:53→17:03)
[2018-05-22] MEDS: METOPROLOL TARTRATE 25 MG TABLET PO SCH ×2 (08:54→17:02)
[2018-05-22] MEDS: DIVALPROEX SODIUM 125 MG CAP.SPRINK PO SCH ×2 (08:55→17:00)
[2018-05-22] MEDS: GABAPENTIN 100 MG CAPSULE PO SCH ×2 (08:55→22:00)
[2018-05-22] MEDS: FLUOXETINE HCL 20 MG CAPSULE PO SCH (08:55)
[2018-05-22] MEDS: FAMOTIDINE (20 MG) 20 MG TABLET PO SCH (08:55)
[2018-05-22] MEDS: FERROUS SULFATE (325 MG) 325 MG/TAB TABLET PO SCH (08:56)
[2018-05-22] MEDS: ASCORBIC ACID 500 MG TABLET PO SCH (08:56)
[2018-05-22] MEDS: CALCITRIOL 0.25 MCG CAPSULE PO SCH (08:56)
[2018-05-22] MEDS: POLYVINYL ALCOHOL 15 ML BOTTLE EACHEYE SCH (08:59)
[2018-05-22] MEDS: KETOROLAC EYE 0.5% 3 ML BOTTLE EACHEYE SCH ×4 (08:59→21:00)
[2018-05-22] MEDS: prednisoLONE ACET 1% OPHT DROP 5 ML BOTTLE EACHEYE SCH ×2 (09:06→17:07)
--- NOTE | 2018-05-22 09:20 | NUR ---
SYLVIA faxed [phone] form to Yesenia, sustainability coordinator at [facility] [address], [place] [address] .
--- NOTE | 2018-05-22 09:21 | NUR ---
SYLVIA spoke with pts daughter hTeodora [phone] and informed her pt is discharging tomorrow 05/23/18, daughter agreed and stated she would contact SYLVIA to confirm transportation.
--- NOTE | 2018-05-22 09:54 | NUR ---
SW received a call from pts daughter Theodora [phone] confirming transportation for tomorrow 05/23/18 with [facility] at 12:30pm.
[2018-05-22] MEDS: NYSTATIN TOP POWDER 15 GM BOTTLE TP SCH ×2 (11:06→17:13)
--- NOTE | 2018-05-22 12:03 | NUR ---
SW received a call from nurse Luly at Dr. Benjamin Rooney [address] [facility] [facility] [address], [place] [address] [phone] requesting clinical information once pt is discharged.
[2018-05-22] MEDS: IPRATROPIUM NEB FS 0.5 MG/2.5 ML AMPUL.NEB NEB SCH ×2 (13:21→19:42)
[2018-05-22] MEDS: ALBUTEROL HALF STRENGTH 1.25 MG/3 ML VIAL.NEB NEB SCH ×2 (13:21→19:44)
[2018-05-22 16:00] VITALS: BP 118/61
[2018-05-22] MEDS ORDERED: LEVOFLOXACIN (250MG) 250 MG TABLET PO SCH (16:00)
[2018-05-22 20:33] VITALS: BP 131/53
[2018-05-22] MEDS ORDERED: CEPHALEXIN MONOHYDRATE 500 MG CAPSULE PO SCH (21:00)
[2018-05-22] MEDS ORDERED: ERGOCALCIFEROL (VITAMIN D 2) 50,000 UNIT CAPSULE PO SCH (22:00)
--- NOTE | 2018-05-22 22:08 | NUR ---
GPS-RN PATIENT REFUSED ALL HER SCHEDULED NIGHT MEDS. OFFERED X3, PATIENT STATED "I AM NOT TAKING ANY MEDICATION, NEVER, NEVER". EXPLAINED RISKS AND BENEFITS BUT PATIENT STRONGLY REFUSED. PATIENT ALSO REFUSED THE INCENTIVE SPIROMETRY DESPITE OF EDUCATION.
[2018-05-23] MEDS: IPRATROPIUM NEB FS 0.5 MG/2.5 ML AMPUL.NEB NEB SCH ×3 (01:08→13:08)
[2018-05-23] MEDS: ALBUTEROL HALF STRENGTH 1.25 MG/3 ML VIAL.NEB NEB SCH ×3 (01:08→13:08)
--- NOTE | 2018-05-23 01:08 | NUR ---
RT NOTES PT REFUSED TX AT THIS TIME. SITTER AT BEDSIDE. NO SOB DISTRESS NOTED ON ROOM AIR. WILL CONT TO MONITOR PT.
[2018-05-23] MEDS: clonazePAM 0.5 MG TABLET PO PRN (01:58)
--- NOTE | 2018-05-23 01:58 | NUR ---
GPS-RN RN NOTES: KLONOPIN 0.5MG PO REFUSED BY PATIENT AFTER OPENING, WASTED IN [employer] AND DISPOSED IN MED WASTE DISPOSAL.
--- NOTE | 2018-05-23 05:30 | NUR ---
GPS-RN PATIENT IS HAVING AN EPISODE OF RESTLESSNESS AND AGITATION. ABLE TO REDIRECT BEHAVIOR. REORIENTED PATIENT AND TAUGHT RELAXATION TECHNIQUES. WILL CONTINUE TO MONITOR FOR SAFETY AND BEHAVIOR.
[2018-05-23 08:00] VITALS: BP 136/60
[2018-05-23] MEDS: ENSURE ENLIVE CHOC 237 ML CAN PO SCH (08:31)
[2018-05-23] MEDS: QUETIAPINE FUMARATE 25 MG TABLET PO SCH (09:10)
[2018-05-23] MEDS: FLUOXETINE HCL 20 MG CAPSULE PO SCH (09:10)
[2018-05-23] MEDS: FAMOTIDINE (20 MG) 20 MG TABLET PO SCH (09:10)
[2018-05-23] MEDS: LACTOBACILLUS RHAMNOSUS GG 1 EACH CAP.SPRINK PO SCH (09:10)
[2018-05-23] MEDS: CALCITRIOL 0.25 MCG CAPSULE PO SCH (09:10)
[2018-05-23] MEDS: FERROUS SULFATE (325 MG) 325 MG/TAB TABLET PO SCH (09:10)
[2018-05-23] MEDS: DIVALPROEX SODIUM 125 MG CAP.SPRINK PO SCH (09:10)
[2018-05-23] MEDS: GABAPENTIN 100 MG CAPSULE PO SCH (09:10)
[2018-05-23 09:11] VITALS: BP 136/60
[2018-05-23] MEDS: ASCORBIC ACID 500 MG TABLET PO SCH (09:11)
[2018-05-23] MEDS: MAGNESIUM HYDROXIDE 30 ML UDC PO SCH (09:11)
[2018-05-23] MEDS: METOPROLOL TARTRATE 25 MG TABLET PO SCH (09:11)
[2018-05-23] MEDS: NYSTATIN TOP POWDER 15 GM BOTTLE TP SCH (09:23)
[2018-05-23] MEDS: prednisoLONE ACET 1% OPHT DROP 5 ML BOTTLE EACHEYE SCH (09:23)
[2018-05-23] MEDS: KETOROLAC EYE 0.5% 3 ML BOTTLE EACHEYE SCH (09:23)
[2018-05-23] MEDS: POLYVINYL ALCOHOL 15 ML BOTTLE EACHEYE SCH (09:24)
--- NOTE | 2018-05-23 10:33 | NUR ---
SYLVIA faxed clinical information to Luly nurse at Dr. Benjamin Rooney [address] [facility] [address], [place] [address] [phone] .
--- NOTE | 2018-05-23 13:05 | NUR ---
GPS/RN-NAINES PATIENT DISCHARGE TO THE [facility]. DR. MANNING AND GURINDER PICKARD AGREED WITH THE DISCHARGE WITH ORDERS. [facility] CONFIRM AND RECEIVED MEDICATIONS LIST. PATIENT DID NOT VERBALIZE SI/HI,DENIES VISUAL AUDITORY HALLUCINATIONS AT THE TIME OF DISCHARGE. PER PATIENT DTR STEPHANIE AWARE OF PATIENT DISCHARGE. PATIENT LEFT THE UNIT ALERT ORIENTED X2.NO ACUTE DISTRESS NOTED,PATIENT NEEDS ASSISTANCE WITH AMBULATING AND ADL'S. 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 Addendum: 05/23/18 at 1404 by DURGA CUNNINGHAM RN IN ADDITION TO MY ABOVE NOTES . PATIENT STRONGLY REFUSED FULL BODY ASSESSMENT PRIOR TO DISCHARGE DESPITE EXPLANATIONS HOSPITAL POLICIES.
--- NOTE | 2018-05-23 13:30 | NUR ---
DISCHARGE NOTE: Pt was discharged at 1:30pm via [facility] arranged by pts daughter Theodora to [facility] [address] [place] [address] . Pts daughter Theodora [phone] agrees with discharge. Pts mood was agitated with congruent affect, pt was yelling that she did not want to leave and was not allowing nurse to transfer her onto the wheelchair. Pt denied visual/auditory hallucinations and denied suicidal/homicidal ideations. SYLVIA provided pts daughter with a referral to Psychiatrist: Dr. Franco Wood [address] [place] [address] [phone] for continuation of psychaitric treatment and daughter will schedule a follow up appointment with General Manager In Training: Dr. Benjamin Rooney [id number] [address] [phone]. has also faxed clinical information to Dr. Rooney. The multidisciplinary exitcare form was done, printed, signed, and given to the patient.
== END 2018-05-23 13:05 | DRG 885 ==
LOC: GPS 18:41
PROVIDERS: ADMIT Psychiatry & Neurology Psychiatry; ATTEND Nurse Practitioner Acute Care
DX: F39 Unspecified mood [affective] disorder (principal); F05 Delirium due to known physiological condition; N17.0 Acute kidney failure with tubular necrosis; N18.9 Chronic kidney disease, unspecified; K85.90 Acute pancreatitis without necrosis or infection, unspecified; J90 Pleural effusion, not elsewhere classified; F23 Brief psychotic disorder; J98.11 Atelectasis; K21.9 Gastro-esophageal reflux disease without esophagitis; F03.90 Unspecified dementia, unspecified severity, without behavioral disturbance, psychotic disturbance, mood disturbance, and anxiety; I10 Essential (primary) hypertension; J44.9 Chronic obstructive pulmonary disease, unspecified; I13.10 Hypertensive heart and chronic kidney disease without heart failure, with stage 1 through stage 4 chronic kidney disease, or unspecified chronic kidney disease; H91.90 Unspecified hearing loss, unspecified ear; H40.9 Unspecified glaucoma; E55.9 Vitamin D deficiency, unspecified; L30.4 Erythema intertrigo; L98.9 Disorder of the skin and subcutaneous tissue, unspecified; S01.80XA Unspecified open wound of other part of head, initial encounter; E66.9 Obesity, unspecified; Z68.26 Body mass index [BMI] 26.0-26.9, adult
CPT/HCPCS: 36415; 71045-TC; 80048-TC; 80053-TC; 80061-TC; 81000-TC; 83735-TC; 84100-TC; 85025-TC; 87086-TC